=== PATIENT | male | born 1965 | race Two or more races ===

== ENCOUNTER 2020-07-22 13:16 | Outpatient (RCR) | payer BC, SELFPAY ==
[2020-07-22] MEDS: COVID-19 VACC, MRNA(PFIZER)/PF 30 MCG/0.3 ML SYRINGE IM (16:59)
[2020-08-12] MEDS: COVID-19 VACC, MRNA(PFIZER)/PF 30 MCG/0.3 ML SYRINGE IM (16:48)
== END 2020-10-14 23:59 ==
LOC: IMMUN 13:16
PROVIDERS: Visit Provider Family Medicine
DX: Z23 Encounter for immunization (principal)
CPT/HCPCS: 0001A; 0002A; 91300